=== PATIENT | female | born 1965 | race Caucasian/White ===

== ENCOUNTER → 2024-05-06 09:10 | Outpatient (REF) | payer BC, SELFPAY | LOC: HWRAD 09:10 | PROVIDERS: ATTENDING PHYSICIAN Internal Medicine Hematology & Oncology; FAMILY PHYSICIAN Family Medicine | DX: C18.7 Malignant neoplasm of sigmoid colon (principal) | CPT/HCPCS: 71260; 74177; Q9967 ==